=== PATIENT | male | born 1955 | race Caucasian/White ===

== ENCOUNTER 2016-06-18 09:29 | Emergency (ER) | payer MEDICAID ==
[~2016-06-18] VITALS: Ht 167.6 cm; Wt 81.0 kg
[2016-06-18 09:36] VITALS: BP 160/98
[2016-06-18] MEDS ORDERED: IBUPROFEN 600MG TABLET PO STA (10:17)
== END 2016-06-18 12:43 | disposition home or self-care (01) ==
LOC: ER 10:29
DX: S40.012A Contusion of left shoulder, initial encounter (principal); I10 Essential (primary) hypertension; E11.9 Type 2 diabetes mellitus without complications; F17.200 Nicotine dependence, unspecified, uncomplicated; V49.69XA Unspecified car occupant injured in collision with other motor vehicles in traffic accident, initial encounter; Y93.89 Activity, other specified; Y99.9 Unspecified external cause status; Y92.89 Other specified places as the place of occurrence of the external cause
CPT/HCPCS: 73030; 73060; 73080; 99284; Z7610